=== PATIENT | male | born 1990 | race Caucasian/White ===

== ENCOUNTER → 2018-01-10 | Outpatient (CLI) | payer OTHER | END | disposition home or self-care (01) | LOC: KCIC MRI 09:19 | DX: S83.242D Other tear of medial meniscus, current injury, left knee, subsequent encounter (principal); M94.262 Chondromalacia, left knee; M25.462 Effusion, left knee; G89.29 Other chronic pain; X58.XXXD Exposure to other specified factors, subsequent encounter | CPT/HCPCS: 73721 ==